=== PATIENT | female | born 1960 | race Caucasian/White ===

== ENCOUNTER → 2016-09-22 | Outpatient (CLI) | payer OTHER | END | disposition home or self-care (01) | LOC: CFH 10:44 | PROVIDERS: ATTEND Family Medicine | DX: Z12.31 Encounter for screening mammogram for malignant neoplasm of breast (principal) | CPT/HCPCS: G0202 ==

== ENCOUNTER → 2018-06-21 | Outpatient (CLI) | payer OTHER | END | disposition home or self-care (01) | LOC: CFH 09:12 | PROVIDERS: ATTEND Family Medicine | DX: Z12.31 Encounter for screening mammogram for malignant neoplasm of breast (principal) | CPT/HCPCS: 77063; 77067 ==

== ENCOUNTER → 2019-05-01 | Outpatient (CLI) | payer OTHER | END | disposition home or self-care (01) | LOC: CVU 06:46 | PROVIDERS: ATTEND Internal Medicine Cardiovascular Disease | DX: I08.2 Rheumatic disorders of both aortic and tricuspid valves (principal); I10 Essential (primary) hypertension; E78.5 Hyperlipidemia, unspecified | CPT/HCPCS: 93306 ==

== ENCOUNTER 2019-07-18 10:13 | Outpatient (CLI) | payer OTHER | END 2019-07-18 23:59 | disposition home or self-care (01) | LOC: CFH 10:13 | PROVIDERS: ATTEND Family Medicine | DX: Z12.31 Encounter for screening mammogram for malignant neoplasm of breast (principal); N64.89 Other specified disorders of breast | CPT/HCPCS: 76641; 77063; 77067 ==

== ENCOUNTER → 2020-08-08 | Outpatient (CLI) | payer OTHER | END | disposition home or self-care (01) | LOC: RAD 08:29 | PROVIDERS: ATTEND Family Medicine | DX: N28.1 Cyst of kidney, acquired (principal); K82.4 Cholesterolosis of gallbladder | CPT/HCPCS: 76700 ==

== ENCOUNTER 2020-08-23 06:51 | Day surgery (SDC) | payer OTHER ==
[2020-08-19 10:11] VITALS: BP 150/92
[~2020-08-23] VITALS: Ht 170.2 cm; Wt 60.8 kg
[~2020-08-23 06:51] MED LIST: ASPI81TA45 PO; ATOR10TA9 PO; CART1TAB4 PO; MULT-658 PO; OMEP-110 PO
[2020-08-23] MEDS ORDERED: BUPIVACAINE/PF-EPI 0.5% 1:200K ONE (07:03)
[2020-08-23] MEDS ORDERED: CHLORHEXIDINE 15 ML UDC MM ONE (07:30)
[2020-08-23] MEDS ORDERED: LACTATED RINGERS 1,000 ML IV SCH (07:30)
[2020-08-23] MEDS ORDERED: INDOCYANINE GREEN 25 MG VIAL ONE (09:39)
[2020-08-23] MEDS ORDERED: SCOPOLAMINE 1MG PATCH TD ONE ×2 (09:48→10:00)
[2020-08-23] MEDS ORDERED: FENTANYL PF 250 MCG/5ML ONE (09:55)
[2020-08-23] MEDS ORDERED: OXYcodone 5 MG/5 ML ORAL.SOL UDC PO PRN (10:00)
[2020-08-23] MEDS ORDERED: METHOCARBAMOL 1,000 MG in DEXTROSE 5% 100 ML IV PRN (10:00)
[2020-08-23] MEDS ORDERED: INDOCYANINE GREEN 25 MG VIAL IV ONE (10:00)
[2020-08-23] MEDS ORDERED: MEPERIDINE/PF 25MG/0.5ML IVPush PRN (10:00)
[2020-08-23] MEDS ORDERED: FENTANYL PF 100 MCG/2ML IV PRN (10:00)
[2020-08-23] MEDS ORDERED: LABETALOL 5MG/ML, 20ML IV PRN (10:00)
[2020-08-23] MEDS ORDERED: LORazepam 2 MG/ML, 1ML IVPush PRN (10:00)
[2020-08-23] MEDS ORDERED: hydrALAzine 20 MG/ML, 1ML IV PRN (10:00)
[2020-08-23] MEDS ORDERED: PROMETHAZINE 25 MG/ML, 1ML IVPush PRN (10:00)
[2020-08-23] MEDS ORDERED: ONDANSETRON 2MG/ML, 2ML IVPush PRN (10:00)
[2020-08-23] MEDS ORDERED: EPHEDRINE 50 MG/ML, 1ML IVPush PRN (10:00)
[2020-08-23] MEDS ORDERED: HYDROmorphone 1 MG/ML, 1ML INJ IVPush PRN (10:00)
[2020-08-23] MEDS ORDERED: PROPOFOL 50 ML ONE (10:34)
[2020-08-23] MEDS ORDERED: MIDAZOLAM 1 MG/ML, 2ML ONE (10:43)
[2020-08-23] MEDS ORDERED: FENTANYL PF 100 MCG/2ML ONE ×2 (11:15→12:39)
[2020-08-23] MEDS ORDERED: ACETAMINOPHEN 650 MG/20.3 ML UDC ONE (11:16)
[2020-08-23] MEDS ORDERED: OXYcodone 5 MG/5 ML ORAL.SOL UDC ONE (11:16)
[2020-08-23] MEDS: ACETAMINOPHEN 325 MG TABLET PO PRN ×2 (11:31→11:35)
[2020-08-23] MEDS ORDERED: hydrALAzine 20 MG/ML, 1ML ONE (11:47)
[2020-08-23] MEDS ORDERED: NEOSTIGMINE 1 MG/ML, 10ML ONE (15:45)
[2020-08-23] MEDS ORDERED: ROCURONIUM 10MG/ML,5ML ONE (15:45)
[2020-08-23] MEDS ORDERED: KETOROLAC 30 MG/1 ML ONE (15:45)
[2020-08-23] MEDS ORDERED: PROPOFOL 10 MG/ML, 20ML ONE (15:45)
[2020-08-23] MEDS ORDERED: SUCCINYLCHOLINE 20 MG/ML, 10ML ONE (15:45)
[2020-08-23] MEDS ORDERED: ONDANSETRON 2MG/ML, 2ML ONE (15:45)
[2020-08-23] MEDS ORDERED: CEFAZOLIN 1,000 MG ONE (15:45)
[2020-08-23] MEDS ORDERED: GLYCOPYRROLATE 0.2MG/1ML, 5ML ONE (15:45)
[2020-08-23] MEDS ORDERED: DEXAMETHASONE 4 MG/ML, 1ML ONE (15:45)
== END 2020-08-23 13:35 | disposition home or self-care (01) ==
LOC: OUT 06:51
PROVIDERS: ATTEND Surgery
DX: K80.10 Calculus of gallbladder with chronic cholecystitis without obstruction (principal); Z79.899 Other long term (current) drug therapy; E78.5 Hyperlipidemia, unspecified; Z98.890 Other specified postprocedural states; Z79.82 Long term (current) use of aspirin
CPT/HCPCS: 47563; 88304; J0330; J0360; J0690; J1100; J1885; J2250; J2405; J2704; J2710; J3010; J7120; S2900

== ENCOUNTER 2020-08-28 04:04 | Emergency (ER) | payer OTHER ==
[~2020-08-28] VITALS: Ht 170.2 cm; Wt 60.1 kg
--- NOTE | 2020-08-28 04:12 | NUR ---
INITIAL PT CONTACT. PT PRESENTS TO ED C/O LOWER BACK PAIN/SPASMS AND NAUSEA. PT STATES SHE HAD GALLBLADDER SURGERY ON WEDNESDAY, APPROX 5 DAYS AGO. PT STATES SHE HADN'T HAD A BM SINCE SURGERY, GAVE HERSELF AN ENEMA, PER PERSONAL DOCTORS RECOMMENDATION, SINCE HAS BEEN ABLE TO HAVE BM. SINCE THE CONSTIPATION, PT HAS BEEN EXPERIENCING BACK SPASMS AND VOMITING, NO RELIEF SINCE ENEMA. PT STATES PAIN IS BETTER WHEN MOVING AND WALKING. PT SITTING UPRIGHT ON GURNEY, VSS. PT DENIES ANY NEEDS AT THIS TIME. AWAITING ERP. SPOUSE AT BEDSIDE
[2020-08-28] MEDS ORDERED: ONDANSETRON 2MG/ML, 2ML ONE (04:51)
[2020-08-28] MEDS ORDERED: MORPHINE SULFATE 4 MG/ML, 1ML ONE (04:51)
[2020-08-28] MEDS ORDERED: ONDANSETRON 2MG/ML, 2ML IVPush ONE (05:00)
[2020-08-28] MEDS ORDERED: SODIUM CHLORIDE 0.9% 1,000ML IVBOLUS ONE (05:00)
[2020-08-28] MEDS ORDERED: MORPHINE SULFATE 4 MG/ML, 1ML IVPush PRN (05:00)
--- NOTE | 2020-08-28 05:20 | NUR ---
report recieved from hank batista. ivf running, pt states feeling better. pt to radiology
--- NOTE | 2020-08-28 05:20 | NUR ---
BEDSIDE REPORT TO XIOMY MANNING
[2020-08-28 05:30] LABS: MICROSCOPIC AUTO
[2020-08-28 05:43] LABS: BASOPHILS % (AUTO) 0 % (0-1); EOSINOPHILS % (AUTO) 0 % (1-7); LYMPHOCYTES % (AUTO) 8 % (22-44); MEAN CORPUSCULAR HEMOGLOBIN 28.9 pg (27.0-34.8); MEAN CORPUSCULAR HGB CONC 33.6 g/dL (32.4-35.8); MEAN PLATELET VOLUME 7.6 fL (7.4-10.4); MONOCYTES % (AUTO) 4 % (2-9); NEUTROPHILS % (AUTO) 87 % (42-75); PLATELET COUNT 292 x10^3/uL (130-400); RED BLOOD COUNT 4.95 x10^6/uL (3.82-5.3); RED CELL DISTRIBUTION WIDTH 12.9 % (9.6-15.2)
[2020-08-28 05:44] LABS: MD NO
[2020-08-28 05:53] LABS: ALANINE AMINOTRANSFERASE 39 U/L (12-78); ALBUMIN 3.6 g/dL (3.4-5.0); ANION GAP 7 mmol/L (5-15); CALCIUM 8.7 mg/dL (8.5-10.1); CHLORIDE 109 mmol/L (98-107); CREATININE 0.87 mg/dL (0.55-1.02)
[2020-08-28 05:54] LABS: ALKALINE PHOSPHATASE 103 U/L (45-117); BILIRUBIN,TOTAL 1.5 mg/dL (0.2-1.0); TOTAL PROTEIN 6.8 g/dL (6.4-8.2)
[2020-08-28 06:41] VITALS: BP 167/84
--- NOTE | 2020-08-28 06:56 | NUR ---
REPORT RECEIVED FROM XIOMY. PT RESTING COMFORTABLY. CALL LIGHT WITHIN REACH.
--- NOTE | 2020-08-28 07:12 | NUR ---
DISCHARGE INSTRUCTIONS REVIEWED WITH PT. ALL QUESTIONSN ANSWERED AT THIS TIME.
== END 2020-08-28 07:15 | disposition home or self-care (01) ==
LOC: ED 06:18
DX: K59.00 Constipation, unspecified (principal); R10.84 Generalized abdominal pain; M41.9 Scoliosis, unspecified; M54.5 Low back pain; E78.00 Pure hypercholesterolemia, unspecified; R11.2 Nausea with vomiting, unspecified; Z90.49 Acquired absence of other specified parts of digestive tract
CPT/HCPCS: 36415; 74021; 80053; 81001; 83690; 85025; 96361; 96374; 96375; 99284; J2270; J2405; J7030

== ENCOUNTER 2020-08-31 10:35 | Inpatient (IN) | payer OTHER ==
[~2020-08-31] VITALS: Ht 170.2 cm; Wt 55.2 kg
--- NOTE | 2020-08-31 10:44 | NUR ---
triage: patient arrives today with chest pressure that began last night. she had her gallbladder removed by Dr Anderson, and then had constipation and came here for that Wednesday; that resolved and now she has chest pressure that began last night she states is across her chest towards shoulders bilaterally.
[2020-08-31] MEDS ORDERED: ASPIRIN 81 MG TABLET CHEW PO ONE (11:00)
[2020-08-31] MEDS ORDERED: SODIUM CHLORIDE FLUSH 10ML SYR IVF ONE (11:00)
--- NOTE | 2020-08-31 11:02 | NUR ---
PATIENT WALKED BACK FROM TRIAGE WITH CHIEF C/O CHEST PRESSURE AND HTN SINCE LAST NIGHT. PATIENT HAD GALLBLADDER REMOVAL 1 WEEK AGO. PATIENT DENIES SOB, DENIES PAIN RADIATING ANYWHERE. CLAUDIA PRAKASH, ACCOMPANIED BY SPOUSE, CALL LIGHT WITHIN REACH.
[2020-08-31] MEDS ORDERED: ASPIRIN 81 MG TABLET CHEW ONE (11:08)
--- NOTE | 2020-08-31 11:21 | NUR ---
20 GAUGE IV STARTED LEFT AC, BLOOD COLLECTED AND GIVEN TO ROBOTICS MECHANIC.
[2020-08-31 11:25] LABS: BASOPHILS % (AUTO) 0 % (0-1); EOSINOPHILS % (AUTO) 1 % (1-7); LYMPHOCYTES % (AUTO) 12 % (22-44); MEAN CORPUSCULAR HEMOGLOBIN 29.1 pg (27.0-34.8); MEAN PLATELET VOLUME 7.5 fL (7.4-10.4); MONOCYTES % (AUTO) 8 % (2-9); NEUTROPHILS % (AUTO) 79 % (42-75); PLATELET COUNT 303 x10^3/uL (130-400); RED BLOOD COUNT 5.57 x10^6/uL (3.82-5.3); RED CELL DISTRIBUTION WIDTH 12.8 % (9.6-15.2)
[2020-08-31 11:27] LABS: MD NO
[2020-08-31 11:36] LABS: ALANINE AMINOTRANSFERASE 32 U/L (12-78); ALBUMIN 4.2 g/dL (3.4-5.0); ANION GAP 12 mmol/L (5-15); CALCIUM 9.1 mg/dL (8.5-10.1); CHLORIDE 102 mmol/L (98-107); CREATININE 0.95 mg/dL (0.55-1.02)
[2020-08-31 11:40] LABS: ALKALINE PHOSPHATASE 117 U/L (45-117); BILIRUBIN,TOTAL 0.9 mg/dL (0.2-1.0); TOTAL PROTEIN 7.8 g/dL (6.4-8.2)
--- NOTE | 2020-08-31 11:50 | NUR ---
ERMD AT BEDSIDE TO DISCUSS POC.
[2020-08-31] MEDS ORDERED: NITROGLYCERIN OINT 2%, 1GM TP ONE ×2 (11:52→12:00)
[2020-08-31] MEDS ORDERED: HEPARIN 25,000 UNITS/250ML PMX 250 ML ONE (11:52)
[2020-08-31] MEDS ORDERED: HEPARIN 5,000 UNITS/ML, 1ML ONE (11:52)
--- NOTE | 2020-08-31 11:53 | NUR ---
NITRO PASTE APPLIED, PATIENT TO CT.
[2020-08-31] MEDS ORDERED: HEPARIN 5,000 UNITS/ML, 1ML IV ONE (12:00)
[2020-08-31] MEDS ORDERED: OMNIPAQUE 350 MG/ML, 75ML BOTTLE ONE (12:00)
[2020-08-31] MEDS ORDERED: HEPARIN 25,000 UNITS/250ML PMX 250 ML IV PRN (12:00)
[2020-08-31] MEDS ORDERED: HEPARIN 5,000 UNITS/ML, 1ML IV PRN (12:00)
--- NOTE | 2020-08-31 12:07 | NUR ---
DR. INMAN, BIODIESEL OPERATIONS MANAGER AT BEDSIDE TO DISCUSS POC. HEPARIN BOLUS OF 3200 UNITS/0.7 mL GIVEN AND HEPARIN DRIP STARTED AT 700 UNITS/HR.
--- NOTE | 2020-08-31 12:13 | NUR ---
NEXT ANTI-XA ORDERED FOR 1800.
--- NOTE | 2020-08-31 12:20 | NUR ---
RAPID COVID SWAB COLLECTED AND WALKED TO LAB.
--- NOTE | 2020-08-31 12:20 | NUR ---
ZURDO STERN AT BEDSIDE FOR ADMISSION EVALUATION.
--- NOTE | 2020-08-31 12:30 | NUR ---
REPORT GIVEN TO KERRI CHRISTIAN IN MAKE UP OPERATOR FOR TRANSFER OF PATIENT CARE. HE WILL CALL ONCE MAKE UP OPERATOR IS READY FOR PATIENT.
[2020-08-31] MEDS ORDERED: MIDAZOLAM 1 MG/ML, 5ML ONE (12:46)
[2020-08-31] MEDS ORDERED: FENTANYL PF 100 MCG/2ML ONE (12:46)
[2020-08-31] MEDS ORDERED: HEPARIN 1,000 UNITS/ML, 10ML ONE (12:47)
[2020-08-31] MEDS ORDERED: VERAPAMIL 2.5 MG/ML, 2ML ONE (12:47)
[2020-08-31] MEDS ORDERED: LIDOCAINE-MPF 1%, 5ML ONE (12:47)
[2020-08-31] MEDS ORDERED: TICAGRELOR 90 MG TABLET ONE (12:47)
[2020-08-31] MEDS ORDERED: BIVALIRUDIN 250 MG ONE (12:47)
[2020-08-31] MEDS ORDERED: ENALAPRILAT 1.25 MG/ML, 2ML IVPush PRN ×2 (13:00)
[2020-08-31] MEDS ORDERED: NITROGLYCERIN 0.4 MG BOTTLE (25 TABS) SL PRN (13:00)
[2020-08-31] MEDS ORDERED: BISACODYL 10 MG SUPP PR PRN (13:00)
[2020-08-31] MEDS ORDERED: ONDANSETRON 2MG/ML, 2ML IVPush PRN (13:00)
[2020-08-31] MEDS ORDERED: HYDROcodone/APAP 5/325 TABLET PO PRN (13:00)
[2020-08-31] MEDS ORDERED: POLYETHYLENE GLYCOL 17 GM PACKET PO PRN (13:00)
[2020-08-31] MEDS ORDERED: ONDANSETRON ODT 4 MG PO PRN (13:00)
--- NOTE | 2020-08-31 13:09 | NUR ---
PT TO BRAIDER TENDER.
[2020-08-31] MEDS: CARVEDILOL 3.125 MG TABLET PO SCH (14:30)
[2020-08-31] MEDS ORDERED: hydrALAzine 20 MG/ML, 1ML IV PRN ×2 (14:30)
[2020-08-31] MEDS: OMEPRAZOLE 20 MG CAPSULE.DR PO SCH (15:46)
[2020-08-31] MEDS: NS + 20MEQ KCL 1,000 ML IV SCH (15:46)
[2020-08-31] MEDS: ACETAMINOPHEN 325 MG TABLET PO PRN (17:10)
[2020-08-31 18:35] VITALS: BP 120/72
[2020-08-31] MEDS ORDERED: ATORVASTATIN 10 MG TABLET PO SCH (21:00)
[2020-09-01] MEDS: NS + 20MEQ KCL 1,000 ML IV SCH (00:34)
[2020-09-01 00:37] VITALS: BP 122/72
[2020-09-01] MEDS ORDERED: MELATONIN 5 MG TABLET PO PRN (01:00)
[2020-09-01 05:06] LABS: BASOPHILS % (AUTO) 1 % (0-1); EOSINOPHILS % (AUTO) 3 % (1-7); LYMPHOCYTES % (AUTO) 19 % (22-44); MEAN CORPUSCULAR HEMOGLOBIN 28.9 pg (27.0-34.8); MEAN CORPUSCULAR HGB CONC 33.6 g/dL (32.4-35.8); MEAN PLATELET VOLUME 8.2 fL (7.4-10.4); MONOCYTES % (AUTO) 11 % (2-9); NEUTROPHILS % (AUTO) 67 % (42-75); PLATELET COUNT 242 x10^3/uL (130-400); RED BLOOD COUNT 4.35 x10^6/uL (3.82-5.3); RED CELL DISTRIBUTION WIDTH 13.1 % (9.6-15.2)
[2020-09-01 05:07] LABS: MD NO
[2020-09-01 05:11] LABS: ALANINE AMINOTRANSFERASE 21 U/L (12-78); ANION GAP 7 mmol/L (5-15); CALCIUM 8.2 mg/dL (8.5-10.1); CHLORIDE 108 mmol/L (98-107); CHOLESTEROL, TOTAL 122 mg/dL (140-239); CREATININE 0.71 mg/dL (0.55-1.02)
[2020-09-01 05:16] LABS: ALKALINE PHOSPHATASE 81 U/L (45-117); BILIRUBIN,TOTAL 0.7 mg/dL (0.2-1.0); CHOL/HDL RATIO 2.4; HDL CHOL % 41 % (28-40); HDL CHOLESTEROL (DIRECT) 50 mg/dL (40-60); LDL CHOLESTEROL,CALCULATED 61 mg/dL (54-169); LDL/HDL RATIO 1.2 (0.5-3.0); TOTAL PROTEIN 5.7 g/dL (6.4-8.2); TRIGLYCERIDES 57 mg/dL (50-200); VLDL CHOLESTEROL 11 mg/dL (0-25)
[2020-09-01] MEDS ORDERED: CARVEDILOL 3.125 MG TABLET PO SCH (06:00)
[2020-09-01] MEDS: OMEPRAZOLE 20 MG CAPSULE.DR PO SCH (06:26)
[2020-09-01] MEDS: CARVEDILOL 3.125 MG TABLET PO SCH (06:26)
[2020-09-01 06:34] VITALS: BP 146/82
[2020-09-01] MEDS: ACETAMINOPHEN 325 MG TABLET PO PRN (08:57)
[2020-09-01] MEDS ORDERED: ASPIRIN 81 MG TABLET EC PO SCH (09:00)
[2020-09-01] MEDS ORDERED: SENNA/DOCUSATE TABLET PO SCH (09:00)
[2020-09-01] MEDS ORDERED: CLOP75TA52 PO (11:20)
[2020-09-01] MEDS ORDERED: CARV3.1212 PO (11:20)
[2020-09-01 13:22] VITALS: BP 132/74
== END 2020-09-01 14:41 | disposition home or self-care (01) | DRG 282 ==
LOC: ED 11:49 → EDIP 11:58 → 5SO 14:18 → DCLOUNGE 09-01 14:26
PROVIDERS: ADMIT Family Medicine; ATTEND Family Medicine
PROC: 4A023N7 Measurement of Cardiac Sampling and Pressure, Left Heart, Percutaneous Approach (ICD-10-PCS; principal; 2020-08-31)
PROC: B2111ZZ Fluoroscopy of Multiple Coronary Arteries using Low Osmolar Contrast (ICD-10-PCS; 2020-08-31)
PROC: B2151ZZ Fluoroscopy of Left Heart using Low Osmolar Contrast (ICD-10-PCS; 2020-08-31)
DX: I21.4 Non-ST elevation (NSTEMI) myocardial infarction (principal); E78.5 Hyperlipidemia, unspecified; I10 Essential (primary) hypertension; I34.1 Nonrheumatic mitral (valve) prolapse; E87.6 Hypokalemia; Z96.652 Presence of left artificial knee joint; Z20.822 Contact with and (suspected) exposure to COVID-19; I24.9 Acute ischemic heart disease, unspecified; Z79.82 Long term (current) use of aspirin; Z82.5 Family history of asthma and other chronic lower respiratory diseases; Z90.49 Acquired absence of other specified parts of digestive tract
CPT/HCPCS: 36415; 71045; 71275; 80053; 80061; 84484; 85025; 85520; 87635; 93005; 93306; 93356; G0378; J0583; J1644; J2250; J3010; J3480; Q9967

== ENCOUNTER → 2020-09-03 | Outpatient (CLI) | payer OTHER ==
[~2020-09-03] MED LIST changes: +CARV3.1212 PO; +CLOP75TA52 PO; +OMNIPAQUE 350 MG/ML, 100ML BOTTLE ONE
== END | disposition home or self-care (01) ==
LOC: CFH 13:11
PROVIDERS: ATTEND Family Medicine
DX: N28.1 Cyst of kidney, acquired (principal); M51.36 Other intervertebral disc degeneration, lumbar region; M41.86 Other forms of scoliosis, lumbar region; Z90.49 Acquired absence of other specified parts of digestive tract
CPT/HCPCS: 74170; Q9967

== ENCOUNTER → 2020-11-19 | Outpatient (CLI) | payer OTHER ==
[~2020-11-19] MED LIST changes: -OMNIPAQUE 350 MG/ML, 100ML BOTTLE ONE
== END | disposition home or self-care (01) ==
LOC: CFH 11:55
PROVIDERS: ATTEND Family Medicine
DX: Z12.31 Encounter for screening mammogram for malignant neoplasm of breast (principal); Z12.39 Encounter for other screening for malignant neoplasm of breast
CPT/HCPCS: 76641; 77063; 77067

== ENCOUNTER → 2021-03-05 | Outpatient (CLI) | payer OTHER | END | disposition home or self-care (01) | LOC: RAD 15:01 | PROVIDERS: ATTEND Internal Medicine Cardiovascular Disease | DX: E04.1 Nontoxic single thyroid nodule (principal); R00.2 Palpitations | CPT/HCPCS: 76536 ==